=== PATIENT | male | born 1960 | race Caucasian/White ===

== ENCOUNTER 2023-12-04 15:52 | Emergency (ER) | payer BC | END 2023-12-04 18:28 | disposition home or self-care (01) | LOC: JD.ED 15:52 | DX: S43.102A Unspecified dislocation of left acromioclavicular joint, initial encounter (principal); I10 Essential (primary) hypertension; E78.00 Pure hypercholesterolemia, unspecified; F17.210 Nicotine dependence, cigarettes, uncomplicated; Z79.899 Other long term (current) drug therapy; V48.3XXA Unspecified car occupant injured in noncollision transport accident in nontraffic accident, initial encounter | CPT/HCPCS: 73030-26-LT; 73030-LT; 99283 ==